=== PATIENT | female | born 1965 | race Caucasian/White ===

== ENCOUNTER 2024-03-21 10:50 | Emergency (ER) | payer OTHER ==
--- NOTE | 2024-03-21 11:09 | ED Physician Documentation ---
PD HPI LOWER EXT INJURY - Stated complaint Stated Complaint: RT LEG PX,SWELLING - Chief complaint Chief Complaint: Ext Problem - History obtained from History obtained from: Patient - History of Present Illness PD HPI LOW EXT INJURY LOCATION: Right, Ankle, Calf Type of injury: No: Fall, Twist Timing - onset: How many weeks ago (2) Timing - duration: Weeks (2) Timing - details: Gradual onset, Still present (still with the ankle pain but noting calf pain now as well. No edema.) Worsened by: Moving, Other (walking) Associated symptoms: No: Weakness, Numbness, Discolored Similar symptoms before: Has not had sx before Recently seen: Clinic (Walk In and referred to ER for US.) Review of Systems Skin: denies: Rash, Lesions PD PAST MEDICAL HISTORY - Past Medical History Past Medical History: Yes Cardiovascular: Hypertension, High cholesterol Respiratory: None Endocrine/Autoimmune: None MARKETING RESEARCHER: None : None Psych: None Musculoskeletal: None - Past Surgical History Past Surgical History: Yes Ortho: Other - Present Medications Home Medications: Ambulatory Orders Medication Instructions Recorded Confirmed Diclofenac Sodium 1% Gel [Voltaren 2 gm TOP QID #50 gm 03/21/24 Gel] Lidocaine Patch 5% [Lidoderm Patch] 1 patch TOP DAILY PRN #20 patch 03/21/24 Meloxicam [Mobic] 7.5 mg PO BID 10 Days #20 tablet 03/21/24 hydroCHLOROthiazide [Hydrodiuril] 25 mg PO DAILY 03/21/24 03/21/24 - Allergies Allergies/Adverse Reactions: Allergies Allergy/AdvReac Type Severity Reaction Status Date / Time No Known Drug Allergies Allergy Verified 03/21/24 10:54 - Social History Does the pt smoke?: No Smoking Status: Never smoker Does the pt drink ETOH?: No Does the pt have substance abuse?: No - Immunizations Immunizations are current?: Yes - POLST Patient has POLST: No PD ED PE NORMAL - Vitals Vital signs reviewed: Yes - General General: Alert and oriented X 3, Well developed/nourished - Derm Derm: Normal color, Warm and dry - Extremities Extremities: No edema, Other (right ankle not tender along sides, nusrat lateral. Some tender in achilles itself. No effusion. Calf has some muscle tenderness but not swollen. ) Results - Vitals Vitals: Oxygen O2 Source Room air - Rads (name of study) duplex venous US Relevant Findings:: Other (US Tech: no DVT. ) PD Medical Decision Making - ED course Complexity details: reviewed results (no DVT on US. ), considered differential (seems ankle tendonitis and can try splint for ankle to support it. Lower suspicion for DVT and seems likely muscular strain in calf due to abnormal gait with ankle, but can get US to ensure. ), d/w patient Departure - Departure Disposition: 01 Home, Self Care Clinical Impression: Right ankle tendonitis Clinical Impression: (Ruled Out): Right leg DVT Condition: Stable Record reviewed to determine appropriate education?: Yes Prescriptions: Lidocaine Patch 5% [Lidoderm Patch] 1 patch TOP DAILY PRN #20 patch PRN Reason: pain Meloxicam [Mobic] 7.5 mg PO BID 10 Days #20 tablet Diclofenac Sodium 1% Gel [Voltaren Gel] 2 gm TOP QID #50 gm Comments: Your ultrasound is negative for any blood clots. Your symptoms sound likely to be a tendinitis of the muscles around the ankle. Sounds like there was some component of Achilles tendinitis. If that flares back up, I would suggest a heel lift to elevate the heel very slightly to reduce tension in the Achilles insertion. Otherwise the other ligaments and tendons around the ankle can be supported with the Aircast to minimize motion and pull on them when you are wa lking. This combined with some anti-inflammatories both orally and locally can try to break the perpetual irritation of it and see if it will get better. I would suggest combination of oral anti-inflammatory such as meloxicam twice daily for the next 7 to 10 days. [id number] alternative would be naproxen/Aleve 220 mg tabletsto take 2 to 3 tablets twice daily. You can also use topical anti-inflammatory of diclofenac/Voltaren 2-3 times daily. In addition there may be some benefit of lidocaine patches in the most sore areas to help with symptoms. To that add acetaminophen 500 to 650 mg 4 times daily as needed for pain. Use the Aircast/gel cast ankle brace when up and around over the next week or 2. Follow-up with primary care or Ortho if not improved. Forms: PCP List Discharge Date/Time: 03/21/24 13:24
--- NOTE | 2024-03-21 12:27 | Ultrasound Report ---
PROCEDURE: Duplex Ext Veins Right INDICATIONS: pain/swelling TECHNIQUE: Real-time imaging, as well as color and pulse Doppler interrogation, were performed of the lower extr emity deep veins from the inguinal ligament to the popliteal fossa. Attempted visualization of the ca lf veins was performed. COMPARISON: None. FINDINGS: The deep veins are normally compressible, and free of intraluminal thrombus. Color and pu lse Doppler demonstrate normal phasic intraluminal flow. There is normal augmentation response to di stal compression maneuver. IMPRESSION: No deep venous thrombosis of the visualized lower extremity. Reviewed by: Klarissa Hernandez MD on 03/21/2024 12:26 PM PDT Approved by: Klarissa Hernandez MD on 03/21/2024 12:26 PM PDT Station ID: [id number]
[2024-03-21] MEDS: NAPROXEN 250 MG TABLET PO STA (12:57)
[2024-03-21 13:41] VITALS: BP 147/79; O2SAT 99
== END 2024-03-21 13:24 | disposition home or self-care (01) ==
LOC: ED 10:50
DX: M76.61 Achilles tendinitis, right leg (principal)
CPT/HCPCS: 93971; 99283; 99284; A9270